=== PATIENT | female | born 1990 | race Two or more races ===

== ENCOUNTER 2017-10-29 08:59 | Outpatient (CLI) | payer OTHER | END 2017-10-29 09:05 | disposition home or self-care (01) | LOC: SONOGRAMA 08:59 | DX: E04.1 Nontoxic single thyroid nodule (principal) ==

== ENCOUNTER 2019-02-03 07:51 | Outpatient (CLI) | payer OTHER | END 2019-02-03 08:00 | disposition home or self-care (01) | LOC: SONOGRAMA 07:51 | DX: E04.1 Nontoxic single thyroid nodule (principal) ==

== ENCOUNTER 2020-04-17 14:24 | Outpatient (CLI) | payer OTHER | END 2020-04-17 14:26 | disposition home or self-care (01) | LOC: SONOGRAMA 14:24 | DX: N63.13 Unspecified lump in the right breast, lower outer quadrant (principal); N63.0 Unspecified lump in unspecified breast ==

== ENCOUNTER 2020-05-30 04:24 | Inpatient (IN) | payer OTHER ==
[~2020-05-30] VITALS: Ht 157.5 cm; Wt 68.9 kg
[2020-05-30] MEDS ORDERED: PRENATAL TABLE1 EAC1 PO (04:37)
[2020-05-30] MEDS ORDERED: OBSTETRIX DHA1 EACH PO (04:38)
== END 2020-06-02 14:37 | disposition home or self-care (01) | DRG 807 ==
LOC: LDR 04:24 → SURG-SUITE 04:24
PROVIDERS: ADMIT Obstetrics & Gynecology; ATTEND Obstetrics & Gynecology
PROC: 10E0XZZ Delivery of Products of Conception, External Approach (ICD-10-PCS; principal; 2020-05-30)
PROC: 0HQ9XZZ Repair Perineum Skin, External Approach (ICD-10-PCS; 2020-05-30)
PROC: 10907ZC Drainage of Amniotic Fluid, Therapeutic from Products of Conception, Via Natural or Artificial Opening (ICD-10-PCS; 2020-05-30)
PROC: 4A1HXCZ Monitoring of Products of Conception, Cardiac Rate, External Approach (ICD-10-PCS; 2020-05-30)
DX: O60.14X0 Preterm labor third trimester with preterm delivery third trimester, not applicable or unspecified (principal); Z37.0 Single live birth; O70.0 First degree perineal laceration during delivery; Z3A.35 35 weeks gestation of pregnancy